=== PATIENT | male | born 1945 | race Caucasian/White ===

== ENCOUNTER → 2019-04-26 | Outpatient (CLI) | payer MEDICARE, BC, SELFPAY ==
[2019-04-26 13:31] VITALS: BMI 25.2
[2019-04-26 17:21] LABS: AST(SGOT) 28 U/L (15-37); Alanine Aminotransfer ALT/SGPT 26 U/L (16-61); Albumin, Serum 3.6 g/dL (3.2-5.0); Alkaline Phosphatase 67 U/L (45-117); Bilirubin, Direct 0.25 mg/dL (0.00-0.30); Globulin 3.3 g/dL (2.2-4.2); Protein, Total 6.9 g/dL (6.4-8.2)
== END | disposition home or self-care (01) ==
PROVIDERS: Referring Provider Internal Medicine Cardiovascular Disease; Visit Provider Internal Medicine Cardiovascular Disease
DX: E78.5 Hyperlipidemia, unspecified (principal)
CPT/HCPCS: 36415; 80076

== ENCOUNTER → 2019-08-02 11:08 | Outpatient (CLI) | payer MEDICARE, BC, SELFPAY ==
[2019-04-26 13:31] VITALS: BMI 25.2
[2019-08-02 14:22] LABS: AST(SGOT) 22 U/L (15-37); Alanine Aminotransfer ALT/SGPT 26 U/L (16-61); Albumin, Serum 3.6 g/dL (3.2-5.0); Alkaline Phosphatase 73 U/L (45-117); Bilirubin, Direct 0.19 mg/dL (0.00-0.30); Cholesterol 158 mg/dL (200); Globulin 3.2 g/dL (2.2-4.2); High Density Lipoprotein 53 mg/dL; Protein, Total 6.8 g/dL (6.4-8.2); Triglycerides 143 mg/dL; Very Low Density Lipoprotein 29 mg/dL (5-40)
== END ==
PROVIDERS: Referring Provider Internal Medicine Cardiovascular Disease; Visit Provider Internal Medicine Cardiovascular Disease
DX: E78.5 Hyperlipidemia, unspecified (principal); E78.00 Pure hypercholesterolemia, unspecified
CPT/HCPCS: 36415; 80061; 80076

== ENCOUNTER → 2022-01-28 | Outpatient (CLI) | payer MEDICARE, BC, SELFPAY ==
--- NOTE | 2022-01-28 14:50 | STRESSREP_ITS ---
Stress Test Report Exercise myocardial perfusion stress test. 76-year-old man with a history of anterolateral myocardial infarction status post stenting of the left anterior descending artery and occlusion of the right coronary artery. Stress protocol: Resting KG demonstrates sinus bradycardia with a rate of 51 bpm normal intervals are noted. The patient exercised according to regular Didier protocol for total duration of 8 minutes and 30 seconds. The maximum heart rate attained was 122 bpm which was 85% of max impact at heart rate the maximum workload was 10.1 metabolic equivalents. At rest there were no ST or T wave changes noted to suggest ischemia and at peak exercise upsloping ST changes were noted with did not meet the criteria for ischemia. Occasional premature ventricular complexes were noted. The resting blood pressure was 142/84 with a peak blood pressure 172/74. No clinical angina was noted. Myocardial perfusion protocol. 10.6 mCi of technetium 99m sestamibi was injected at rest. The patient exercised according to regular Didier protocol for total duration of 8-1/2 minutes and at peak exercise 34.0 mCi of technetium 99m sestamibi was injected stress images were obtained stress and rest images were reconstructed in comparing the short axis vertical long and horizontal long axis. Gated images were also obtained to Perfusion SPECT analysis: Review of the images demonstrate a normal cardiac silhouette size on the stress images. There is a medium size defect noted in the anterior septal wall and apex on the stress images the rest of the marlow appear to be normally perfused. The resting images demonstrate a persistent defect noted in the apex suggestive of an apical infarct and mild improvement in the anterior septal wall suggestive of mild anterior septal ischemia. Gated SPECT analysis: The gated ejection fraction is 44%. Conclusion: Abnormal exercise myocardial perfusion stress test with mild anteroseptal isc hemia present. Previous apical infarct present. Mildly reduced left ventricular ejection fraction.
== END | disposition home or self-care (01) ==
LOC: CVS 06:34
PROVIDERS: PCP Internal Medicine; Referring Provider Physician Assistant Medical; Visit Provider Physician Assistant Medical
DX: I25.10 Atherosclerotic heart disease of native coronary artery without angina pectoris (principal)
CPT/HCPCS: 78452; 93017; A9500; A4216

== ENCOUNTER → 2022-02-04 | Day surgery (SDC) | payer MEDICARE, BC, SELFPAY ==
[2022-01-30 13:39] LABS: Absolute Neutrophil Count 1.4 X10^3/uL (2.0-7.7); Basophil# 0.05 X10^3/uL; Basophil% 1.5 % (0-1); Eosinophil# 0.11 X10^3/uL; Eosinophils% 3.2 % (0-5); Hematocrit 39.9 % (40-54); Hemoglobin 13.5 g/dL (13.0-16.5); Lymphocyte % 41.2 % (19-41); Mean Corp Hgb Conc 33.8 g/dL (32-36); Mean Corpuscular Hgb 31.2 pg (27.0-32.0); Mean Corpuscular Volume 92.1 fL (80-94); Mean Platelet Vol. 12.2 fl (6.2-12.0); Monocyte# 0.43 X10^3/uL; Monocyte% 12.6 % (0-10); NRBC Flagged by Analyzer 0 % (0-5); Neutrophil # 1.41 X10^3/uL (2.7-7.7); Neutrophil % 41.5 % (47-70); Platelet Count 130 K/mm3 (150-450); RBC Distribution Width CV 12.1 % (11.6-14.6); RBC Distribution Width SD 41.2 fl (35.1-43.9); Red Blood Count 4.33 M/mm3 (4.6-6.2); White Blood Count 3.4 K/mm3 (4.4-11.0)
[2022-01-30 14:14] LABS: Anion Gap 5 (5-15); BUN 18 mg/dL (7-18); BUN/Creat Ratio 17.5 RATIO (10-20); Calcium,Total 8.9 mg/dL (8.5-10.1); Chloride 107 mmol/L (98-107); Creatinine, Serum 1.03 mg/dL (0.70-1.30); EST Glomerular Filtration Rate 74 mL/min (>60); Est Glom Filt Rate - Afr Amer 90 mL/min (>60); Glucose 60 mg/dL (74-106); Potassium 4.1 mmol/L (3.5-5.1); Sodium Level 142 mmol/L (136-145)
[2022-02-03 12:41] VITALS: BMI 25.9
--- NOTE | 2022-02-04 13:01 | CL.D_ITS ---
Patient Name: ELYSE AVILES Study Date: 02/04/2022 Performing: Keny Bustos MD Ht: 68.11 inches 173 cm : 1945 Wt: 171.96 lbs 78 kg Age: 76 Gender: male BSA: 1.92 PROCEDURE(S) PERFORMED [id number])[facility] CLINICAL PROFILE AND INDICATIONS Indications: Suspected CAD Heart Failure: None Stress/Imaging Date: 12/27/21Stress Test with SPECT MPI: Positive Low Risk CAD Presentations: No Sxs, no angina. CONCLUSIONS Coronary artery disease with previously placed stent in the left anterior descending artery patent, m oderate disease noted in the ramus intermedius and a total occluded right coronary artery with left-t o-right collaterals RECOMMENDATIONS Medical therapy DESCRIPTION OF PROCEDURE The patient arrived to the procedure lab. The risks and benefits of the procedure as well as a full d escription of our services here and current unavailability of surgical backup were fully explained to the patient and/or their significant other prior to the catheterization. The Timeout was completed, verifying the correct patient and procedure. The patient's procedural site was prepped and draped in the usual fashion. Local anesthetic was given subcutaneously to right radial region with Lidocaine 2% . Using a modified Seldinger technique, arterial access was obtained via the right radial artery, a 6 Fr sheath was inserted. Left Coronary Artery selective angiography was performed in multiple views u sing a 5 Fr. 4.0 Seminary catheter. Right Coronary Artery selective angiography was then performed in mu ltiple views using a 5 Fr. 4.0 Seminary catheter.The arterial sheath was pulled and a TR Band was applie d for hemostasis. 12cc air inserted CORONARY ANGIOGRAPHY DOMINANCE: Right Dominant LEFT HEART ASSESSMENT Left Ventricular Ejection Fraction: by Echo 50 % Apical Hypokinesis - Mild Normal Left Ventricular systolic function LEFT MAIN: Angiographically normal LEFT ANTERIOR DESCENDING ARTERY: Previously placed stent in the proximal left anterior descending art mikel is patent with 30% in-stent stenosis and mild distal disease CIRCUMFLEX ARTERY: Mild luminal irregularities less than 30% RAMUS: Proximal aneurysmal segment noted and mild diffuse disease RIGHT CORONARY ARTERY: Severely diseased vessel which appears to be subtotally occluded in the midseg ment and faintly filling the posterior lateral vessel and left to right collaterals seen filling the distal right coronary artery COLLATERAL FLOW: Collateral flow from Left to Right COMPLICATIONS No Complications PROCEDURE MEDICATIONS Fentanyl 50 mcg IV Versed 1 mg IV Versed 1 mg IV Oxygen: 2 L/min via nasal cannula Heparin given IA 02/04/2022 12:36:13 Verapamil 2.5mg, Ntg 100mcgs, 3000 units of Heparin given IA 02/04/2022 12:36:13 SUMMARY OF HEMODYNAMIC DATA Time AIR REST ECG 10:54:20 AO 131/73 (96) SA 12:37:24 Signed By Keny Bustos MD On 02/04/2022 13:00:18 Keny Bustos MD
== END | disposition home or self-care (01) ==
PROVIDERS: PCP Internal Medicine; Referring Provider Internal Medicine Cardiovascular Disease; Visit Provider Internal Medicine Cardiovascular Disease
DX: I25.10 Atherosclerotic heart disease of native coronary artery without angina pectoris (principal); I25.2 Old myocardial infarction; E78.5 Hyperlipidemia, unspecified; I10 Essential (primary) hypertension; I25.5 Ischemic cardiomyopathy; Z95.5 Presence of coronary angioplasty implant and graft; Z79.82 Long term (current) use of aspirin; Z79.899 Other long term (current) drug therapy; Z86.718 Personal history of other venous thrombosis and embolism
CPT/HCPCS: 36415; 80048; 85025; 93454; 99152; 99153; J7040; C1769